=== PATIENT | female | born 1985 | race Caucasian/White ===

== ENCOUNTER 2022-05-20 20:40 | Emergency (ER) | payer MEDICAID, OTHER ==
[~2022-05-20] VITALS: Ht 167.6 cm; Wt 113.8 kg
[2022-05-20] MEDS ORDERED: PROP40TA62 PO (20:57)
[2022-05-20] MEDS ORDERED: ZONE1CAP PO (20:57)
[2022-05-20] MEDS ORDERED: TRAZ-257 PO (20:57)
[2022-05-20] MEDS ORDERED: SYNT150T PO (20:57)
[2022-05-20] MEDS ORDERED: LYRI150C PO (20:57)
[2022-05-20] MEDS ORDERED: LIPI20TA PO (20:57)
[2022-05-20] MEDS ORDERED: PROM25TA12 PO (20:57)
[2022-05-20] MEDS ORDERED: PROZ40CA PO (20:57)
[2022-05-20] MEDS ORDERED: SYNT100T PO (20:57)
[2022-05-20 21:43] LABS: BASO % 0.4 % (0.0-1.0); EOS # 0.2 10^3/uL (0.0-0.5); HEMATOCRIT 38.7 % (36.0-47.0); HEMOGLOBIN 12.8 g/dl (12.0-15.5); LYMPH # 2.8 10^3/uL (1.5-5.0); LYMPH % 37.2 % (24.0-44.0); MEAN CORPUSCULAR HEMOGLOBIN 29.2 pg (27.0-33.0); MEAN CORPUSCULAR HGB CONC 33.1 g/dl (32.0-36.5); MEAN CORPUSCULAR VOLUME 88.4 fl (80.0-96.0); MONO # 0.4 10^3/uL (0.0-0.8); MONO % 5.8 % (2.0-8.0); NEUTROPHILS % 54.2 % (36.0-66.0); PLATELET COUNT, AUTOMATED 219 10^3/uL (150-450); RED BLOOD COUNT 4.38 10^6/uL (4.00-5.40); WHITE BLOOD COUNT 7.4 10^3/uL (4.0-10.0)
[2022-05-20 22:30] LABS: ALBUMIN 3.5 GM/DL (3.2-5.2); ALT/SGPT 79 U/L (12-78); BILIRUBIN,DIRECT < 0.1 MG/DL (0.0-0.2); BILIRUBIN,TOTAL 0.4 MG/DL (0.2-1.0); BLOOD UREA NITROGEN 10 MG/DL (7-18); CALCIUM LEVEL 9.2 MG/DL (8.5-10.1); CARBON DIOXIDE LEVEL 24 MEQ/L (21-32); CHLORIDE LEVEL 107 MEQ/L (98-107); CREATININE FOR GFR 0.91 MG/DL (0.55-1.30); GLOMERULAR FILTRATION RATE > 60.0 (>60); GLUCOSE, FASTING 149 MG/DL (70-100); LIPASE 107 U/L (73-393); MAGNESIUM LEVEL 1.9 MG/DL (1.8-2.4); POTASSIUM SERUM 4.8 MEQ/L (3.5-5.1); SODIUM LEVEL 137 MEQ/L (136-145); TOTAL PROTEIN 7.5 GM/DL (6.4-8.2)
[2022-05-20 22:47] LABS: HCG, SERUM QUALITATIVE NEGATIVE (NEGATIVE)
[2022-05-20] MEDS ORDERED: MORPHINE 4 MG/ML 1ML VIAL/SYRINGE IV ONE (23:40)
[2022-05-20] MEDS ORDERED: NS 1,000 ML IV ONE (23:40)
[2022-05-20] MEDS ORDERED: METOCLOPRAMIDE INJ 10MG/2ML VIAL (J2765 PER 1) IV ONE (23:40)
[2022-05-21] MEDS ORDERED: HYDR-3713 PO ×2 (02:00→16:49)
[2022-05-21 02:18] VITALS: BP 126/82
== END 2022-05-21 02:20 | disposition home or self-care (01) ==
LOC: M ED 20:40
DX: R51.9 Headache, unspecified (principal); T88.59XA Other complications of anesthesia, initial encounter; T85.09XA Other mechanical complication of ventricular intracranial (communicating) shunt, initial encounter; R11.2 Nausea with vomiting, unspecified; R42 Dizziness and giddiness; G93.2 Benign intracranial hypertension; E11.9 Type 2 diabetes mellitus without complications; I10 Essential (primary) hypertension; E03.9 Hypothyroidism, unspecified; E78.5 Hyperlipidemia, unspecified; J45.909 Unspecified asthma, uncomplicated; F32.A Depression, unspecified; F41.9 Anxiety disorder, unspecified; Z88.8 Allergy status to other drugs, medicaments and biological substances; Z90.49 Acquired absence of other specified parts of digestive tract; E66.9 Obesity, unspecified; Z79.899 Other long term (current) drug therapy; Z79.890 Hormone replacement therapy
CPT/HCPCS: 70450; 80048; 80076; 83690; 83735; 84703; 85025; 96361; 96374; 96375; 99283; J2270; J2765